=== PATIENT | female | born 1980 | race African-American/Black ===

== ENCOUNTER 2019-08-17 14:12 | Emergency (ER) | payer OTHER, SELFPAY ==
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
[2019-08-17 20:01] VITALS: BP 127/79; TEMP 98.3; O2SAT 100
== END 2019-08-17 15:58 | disposition home or self-care (01) ==
LOC: ER 14:12
DX: M54.9 Dorsalgia, unspecified (principal); V43.53XA Car driver injured in collision with pick-up truck in traffic accident, initial encounter; Y93.89 Activity, other specified; Y92.410 Unspecified street and highway as the place of occurrence of the external cause
CPT/HCPCS: 72070; 99283

== ENCOUNTER 2022-05-09 07:58 | Emergency (ER) | payer OTHER, SELFPAY ==
--- OUTSIDE RECORDS SUMMARY | 2022-05-09 08:01 | XMS REPORT | Continuity of Care Document ---
:1980 Author Organization [facility] t Address [address] [place] [address] Care Team Providers Name Role Phone MILDRED ARELLANO Attending Clinician Unavailable Problems This patient has no known problems. Allergies, Adverse Reactions, Alerts Allergy Allergy Status Severity Reaction(s) Onset Inactive Treating Comm ents Source Name Type Date Date Clinician NO KNOWN Drug Active [facility] ALLERGIE Class [facility] Medications This patient has no known medications. Procedures This patient has no known procedures. Encounters Start End Encounter Admission Attending Care Care Encounter Source Date/Time Date/Time Type Type Clinicians Facility Department ID 2021-03-21 2021-03-21 Outpatient R [facility] [id number] [facility] 15:20:00 15:20:00 MILDRED [facility] Results Test Description Test Time Test Comments Results Result Sourc e Comments SCR MAMM 2022-01-29 BILATERAL YESSY 14:04:02 CAD DIGITAL Name: Edward : 1980 Sex: F - SCR MAMM BILATERAL YESSY CAD DIGITALBILATERAL FIRST EVER DIGITAL SCREENING MAMMOGRAM 3D/2D WITH CAD: 01/28/2022LINICAL: Asymptomatic. Digital breast tomosynthesis was performed in addition to routine CC and MLO views. Current mammographic images were evaluated by PowerPractical ImageChecker CAD (computer-aided detection) software. No prior exams were available for comparison. The tissue of both breasts is heterogeneously dense. This may lower the sensitivity of mammography. There are benign calcifications in both breasts. There also is a benign intramammary node in the left breast. No suspicious mass, architectural distortion, malignant type calcification, or lymph node abnormality detected. IMPRESSION: BENIGNThere is no mammographic evidence of malignancy. Resume annual screening mammography in one year. Rolando Zaman/peneverardo:01/29/2022 14:04:02 Tower Equipment Installer: Maryana Schmitz MM, [facility] Mammography[facility] sent: BIRADS 1-2 Normal Mammogram BI-RADS: 2 Benign
[2022-05-09] MEDS ORDERED: KETOROLAC 30 MG/ML INJ ONE (08:29)
[2022-05-09] MEDS ORDERED: HYDROCODONE/APAP 10/325 TAB ONE (08:29)
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
--- NOTE | 2022-05-09 08:57 | RAD REPORT ---
EXAM DESCRIPTION: CT - C Spine Wo Con - 05/09/2022 8:42 am CLINICAL HISTORY: Neck trauma, impaired ROM Trauma, neck injury COMPARISON: Thoracic Spine W/o Cont dated 05/09/2022 FINDINGS: The cervical vertebral body heights and disc spaces are maintained. Moderate posterior dis c/ osteophyte complex is noted at C3-4. No evidence of acute cervical spine fracture or subluxation. Prevertebral soft tissues are normal in thickness. IMPRESSION: Negative for acute cervical spine abnormality. Moderate upper cervical spondylosis is present. Nonemergent MRI cervical spine followup would be [facility]. All CT scans are performed using dose optimization technique as appropriate and may include automated exposure control or mA/KV adjustment according to patient size.
[2022-05-09 09:16] VITALS: TEMP 97.6; O2SAT 100
== END 2022-05-09 09:07 | disposition home or self-care (01) ==
LOC: ER 07:58
DX: S16.1XXA Strain of muscle, fascia and tendon at neck level, initial encounter (principal); S29.012A Strain of muscle and tendon of back wall of thorax, initial encounter; V49.49XA Driver injured in collision with other motor vehicles in traffic accident, initial encounter
CPT/HCPCS: 72125; 72128; 96372; 99283